=== PATIENT | female | born 1995 | race Caucasian/White ===

== ENCOUNTER 2017-04-14 21:35 | Emergency (ER) | payer MEDICAID ==
[2017-04-14 21:42] VITALS: BP 119/65
--- NOTE | 2017-04-14 21:59 | EDM.PDOC ---
ED HPI GENERAL MEDICAL PROBLEM - General Chief Complaint: Skin Complaint Stated Complaint: RASH, [id number] Time Seen by Provider: 04/14/17 21:53 Source of Information: Reports: Patient - History of Present Illness INITIAL COMMENTS - FREE TEXT/NARRATIVE: patient comes emergency Department today with complaints of a lesion on her left wrist on the volar aspect The patient recently purchased an apple watch and after wearing it for approximately 1 week she noticed that in the area where the metal clasp was she developed a red rash E-type lesion. She is not wearing the watch for the the past few days and the rash has not gotten worse but has not gotten any better. She has only tried hydrocortisone 1 time on the rash. She denies any other rash or lesions on any of her other extremities. She denies any fever or chills shortness of breath or difficulty breathing. No sore throat. No recent exposure to any camping or the wounds. - Related Data Allergies Allergy/AdvReac Type Severity Reaction Status Date / Time No Known Allergies Allergy Verified 04/14/17 21:40 Home Meds: Home Meds . [No Known Home Meds] 07/28/14 [History] Past Medical History - Past Health History Medical/Surgical History: Denies Medical/Surgical History HEENT History: Reports: None Cardiovascular History: Reports: None Respiratory History: Reports: None Gastrointestinal History: Reports: None Genitourinary History: Reports: None CELLAR HAND History: Reports: None Musculoskeletal History: Reports: None Neurological History: Reports: None Psychiatric History: Reports: None Endocrine/Metabolic History: Reports: None Hematologic History: Reports: None Immunologic History: Reports: None Oncologic (Cancer) History: Reports: None Dermatologic History: Reports: None - Infectious Disease History Other Infectious Disease History: pt unsure - Past Surgical History HEENT Surgical History: Reports: None Cardiovascular Surgical History: Reports: None Respiratory Surgical History: Reports: None GI Surgical History: Reports: None Female Surgical History: Reports: None Endocrine Surgical History: Reports: None Neurological Surgical History: Reports: None Musculoskeletal Surgical History: Reports: None Oncologic Surgical History: Reports: None Social & Family History - Family History Family Medical History: Noncontributory - Tobacco Use Smoking Status *Q: Current Every Day Smoker Years of Tobacco use: 3 Packs/Tins Daily: 0.3 Used Tobacco, but Quit: No Month Tobacco Last Used: March Second Hand Smoke Exposure: No - Caffeine Use Caffeine Use: Reports: Soda - Alcohol Use Days Per Week of Alcohol Use: 0 - Recreational Drug Use Recreational Drug Use: No ED ROS GENERAL - Review of Systems Review Of Systems: ROS reveals no pertinent complaints other than HPI. ED EXAM, SKIN/RASH Exam: See Below Exam Limited By: No Limitations General Appearance: Alert, WD/WN, No Apparent Distress Head: Other (no rash). No: Facial Swelling Neck: Other (no rash) Respiratory/Chest: No Respiratory Distress, Other (no rash) Cardiovascular: Normal Peripheral Pulses, Regular Rate, Rhythm Back Exam: Other (no rash) Extremities: Other (on the left volar aspect of the wrist on the most distal region there is an approximate 1.5 cm wide lesion by 1 cm long. It is mildly scaly in nature and pink. Not erythematous. There is a small area of scab in the middle of it. There is no induration. No swelling warmth or streaking.) Course - Vital Signs Last Recorded V/S: Last Vital Signs Temp 36.4 C 04/14/17 21:41 Pulse 86 04/14/17 21:41 Resp 16 04/14/17 21:41 BP 119/65 04/14/17 21:41 Pulse Ox 100 04/14/17 21:41 Departure - Departure Time of Disposition: 21:54 Disposition: Home, Self-Care 01 Clinical Impression: Contact dermatitis Qualifiers: Contact dermatitis type: unspecified Contact dermatitis trigger: unspecified trigger Qualified Code(s): L25.9 - Unspecified contact dermatitis, unspecified cause - Discharge Information Instructions: Contact Dermatitis, [id number] Additional Instructions: Do not wear the Apple watch until you can get a different band for the watch, try to find one that is primarily rubber or synthetic without nickel on the clasp. Topical OTC hydrocortisone cream 4 times a day until 3 days after resolution of the lesion. Return to the ED if new or worsening symptoms. Follow up with primary care if not improving. - Assessment/Plan Assessment:: Contact dermatitis most likely from watch band. Plan: Do not wear the Apple watch until you can get a different band for the watch, try to find one that is primarily rubber or synthetic without nickel on the clasp. Topical OTC hydrocortisone cream 4 times a day until 3 days after resolution of the lesion. Return to the ED if new or worsening symptoms. Follow up with primary care if not improving.
== END 2017-04-14 21:58 | disposition home or self-care (01) ==
LOC: DL.ED 21:35
DX: L25.9 Unspecified contact dermatitis, unspecified cause (principal); F17.210 Nicotine dependence, cigarettes, uncomplicated
CPT/HCPCS: 99282

== ENCOUNTER 2019-11-04 21:00 | Emergency (ER) | payer MEDICAID ==
[2019-11-04] MEDS ORDERED: Tetracaine HCl/PF 0.5% 4 ML Bottle EYELF ONE (21:12)
[2019-11-04] MEDS ORDERED: Fluorescein 1 MG Ophth Strip EYELF ONE (21:12)
[2019-11-04 21:13] VITALS: BP 124/86; PULSE 95
--- NOTE | 2019-11-04 21:22 | EDM.PDOC ---
ED HPI GENERAL MEDICAL PROBLEM - General Chief Complaint: Eye Problems Stated Complaint: RED EYES Time Seen by Provider: 11/04/19 21:05 Source of Information: Reports: Patient History Limitations: Reports: No Limitations - History of Present Illness INITIAL COMMENTS - FREE TEXT/NARRATIVE: c/o pain scratchy sensation left eye since last evening, Doesn't think anything in ey. No hx of injury. - Related Data Allergies Allergy/AdvReac Type Severity Reaction Status Date / Time No Known Allergies Allergy Verified 11/04/19 21:13 Home Meds: Home Meds . 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 Musculoskeletal History: Reports: None Neurological History: Reports: None Psychiatric History: Reports: None Endocrine/Metabolic History: Reports: None Hematologic History: Reports: None Immunologic History: Reports: None Oncologic (Cancer) History: Reports: None Dermatologic History: Reports: None - Infectious Disease History Other Infectious Disease History: pt unsure - Past Surgical History HEENT Surgical History: Reports: None Cardiovascular Surgical History: Reports: None Respiratory Surgical History: Reports: None GI Surgical History: Reports: None Female Surgical History: Reports: None Endocrine Surgical History: Reports: None Neurological Surgical History: Reports: None Musculoskeletal Surgical History: Reports: None Oncologic Surgical History: Reports: None Social & Family History - Family History Family Medical History: Noncontributory - Caffeine Use Caffeine Use: Reports: Soda ED ROS GENERAL - Review of Systems Review Of Systems: Comprehensive ROS is negative, except as noted in HPI. ED EXAM GENERAL W FULL EYE - Physical Exam Exam: See Below Exam Limited By: No Limitations General Appearance: Alert, No Apparent Distress Eye Exam: Bilateral Eye: EOMI, Normal Inspection, PERRL Eyelids: Bilateral: Normal Appearance Conjunctiva & Sclera: Bilateral: Normal Appearance Cornea Exam: Left: Examined with Flourescein, Bilateral: Normal Appearance Extraocular Movements: Bilateral: Intact Pupils: Normal Accommodation Pupillary Reaction: Bilateral: Brisk Throat/Mouth: Normal Oropharynx Neck: Full Range of Motion Respiratory/Chest: No Respiratory Distress Cardiovascular: Regular Rate, Rhythm Neurological: Alert, Oriented Skin Exam: Warm, Dry, Intact Departure - Departure Time of Disposition: 21:22 Disposition: Home, Self-Care 01 Condition: Good Clinical Impression: Conjunctivitis Qualifiers: Conjunctivitis type: acute Acute conjunctivitis type: atopic Laterality: left Qualified Code(s): H10.12 - Acute atopic conjunctivitis, left eye - Discharge Information *PRESCRIPTION DRUG MONITORING PROGRAM REVIEWED*: No *COPY OF PRESCRIPTION DRUG MONITORING REPORT IN PATIENT ROVERTO: No Instructions: Allergic Conjunctivitis, Adult, [id number] Additional Instructions: moisturizing eye drops per package label as needed avoid any eye makeup for one week follow up if symptoms worsen, blurred vision , severe redness or purulent drainage
== END 2019-11-04 21:30 | disposition home or self-care (01) ==
LOC: DL.ED 21:00
DX: H10.12 Acute atopic conjunctivitis, left eye (principal)
CPT/HCPCS: 99283

== ENCOUNTER 2020-12-03 22:38 | Inpatient (IN) | payer MEDICAID ==
[2020-12-03] MEDS ORDERED: Lactated Ringers 1,000 ML IV SCH (23:45)
[2020-12-03] MEDS ORDERED: Lidocaine 1% 30 ML SDV INJECT PRN (23:54)
[2020-12-03] MEDS ORDERED: Methylergonovine 0.2 MG/1 ML Amp IM PRN (23:54)
[2020-12-03] MEDS ORDERED: Lactated Ringers 1,000 ML IV ONE (23:54)
[2020-12-03] MEDS ORDERED: Misoprostol 400 MCG (4 X 100 MCG TAB) RECTAL PRN (23:54)
[2020-12-03] MEDS ORDERED: Sodium Chloride 0.9% 10 ML Syringe FLUSH PRN (23:54)
[2020-12-03] MEDS ORDERED: Tranexamic Acid 1,000 MG in Sodium Chloride 0.9% 100 ML IV PRN (23:54)
[2020-12-03] MEDS ORDERED: Carboprost Tromethamine 250 MCG/1 ML Amp IM PRN (23:54)
[2020-12-03] MEDS ORDERED: Acetaminophen 325 MG Tab PO PRN ×2 (23:54)
[2020-12-03] MEDS ORDERED: Ondansetron 4 MG/2 ML SDV IVPUSH PRN (23:54)
[2020-12-03] MEDS ORDERED: Nalbuphine 10 MG/1 ML Vial IM PRN (23:58)
[2020-12-04] MEDS: Oxytocin/Normal Saline 30 UNIT/500 ML BAG IV SCH ×2 (01:00→10:42)
--- NOTE | 2020-12-04 08:17 | OBOUT ---
DATE: 12/03/2020 TIME: 2300 to 2320. REASON FOR NST: 1. Intrauterine at 40 weeks, confirmed with 19-2/7 week ultrasound. 2. Rupture of membranes at approximately 1930 hours on 12/03 2020. 3. GBS negative. 4. History of gestational hypertension on aspirin until 11/27/2020. 5. COVID test positive. 6. 3, para 1-1-0-2. NST INTERPRETATIONS: During this time period, heart tone baseline is approximately 140 with at least two 15 x 15 beats per minute accelerations, making this strip reactive as well as noted to be reassuring. Tocometer reveals potential 3 to 4 contractions. Blood pressure 115/78, heart rate 103, and temperature 97.6. ASSESSMENT AND PLAN: 1. Nonstress test, reactive and reassuring. 2. Tocometer with contractions. PLAN: Due to no significant cervical change. Actually, it being less than a centimeter per nurse, Pitocin was started and COVID precautions taken. We will continue to follow clinically and closely at this point in time. Please see H and P done through [employer] with updates sticker attached and updated as above. Essentially, the patient had rupture of membranes at approximately 1930 hours on 12/03 2020, occasional contractions, but no labor, and Pitocin will be started. [facility] /[id number]
--- NOTE | 2020-12-04 08:43 | PN ---
DATE: 12/04/2020 SUBJECTIVE: The patient continues on Pitocin. Feels the contractions in the lower abdomen, increasing in frequency and intensity. Difficulty detecting heart tones at times, and difficulty detecting strength of contractions with slow cervical change noted per nurse. The patient tested COVID test positive last night. OBJECTIVE: Last night's white cell count 11.5, hemoglobin 13.3, and platelets 184. Urinalysis with 20 to 30 white cells per high-powered field with BV/clue cells on micro. AmniSure was positive, and COVID test positive as well. heart tones difficult to discern. Appeared to have some decelerations down in the 100s at times. Nurse requesting scalp electrode, tocometer poor reading, contractions every 3 to 4 minutes at times. Vaginal exam reveals it to be 3 cm, 60% effaced, -1 to -2 station, vertex suspected, and IUPC placed after discussion patient as well as scalp electrode. ASSESSMENT: 1. Interim now at 40-1/7 weeks, confirmed with 19-2/7 week ultrasound. 2. Pre labor rupture of membranes at 1930 hours on 12/03/2020, now on Pitocin augmentation at 14 milliunits per minute. 3. Group B Streptococcus negative. 4. History of gestational hypertension, on aspirin until last week on 11/27/2020. 5. COVID test positive. 6. 3, para 1-1-0-2. PLAN: IUPC and FSE placed for further monitoring. We will continue to follow clinically and closely. Continue Pitocin augmentation. The patient understands and agrees with the above treatment plan. [facility] /[id number]
[2020-12-04] MEDS ORDERED: Simethicone 80 MG Tab.Chew PO PRN (09:37)
[2020-12-04] MEDS ORDERED: Benzocaine/Menthol 20%-0.5% Spray 78 GM Cannister TOP PRN (09:37)
[2020-12-04] MEDS ORDERED: Zolpidem 5 MG Tab PO PRN (09:37)
[2020-12-04] MEDS ORDERED: Oxytocin 10 Units/1 ML SDV IM PRN (09:37)
[2020-12-04] MEDS ORDERED: Sodium Chloride 0.9% 10 ML Syringe FLUSH PRN (09:37)
[2020-12-04] MEDS: Ibuprofen 800 MG Tab PO PRN ×2 (12:50→21:15)
--- NOTE | 2020-12-04 17:11 | DEL ---
DATE: 12/04/2020 PREOPERATIVE DIAGNOSES: 1. Intrauterine at 40-1/7 weeks, confirmed by 19-2/7 week ultrasound. 2. Spontaneous rupture of membranes, prelabor at 1930 hours on 12/03/2020. 3. Group B Streptococcus negative. 4. History of gestational hypertension, on aspirin until last week 11/27/2020. 5. coronavirus disease test positive upon admission. 6. G3, P1-1-0-2. POSTOPERATIVE DIAGNOSES: 1. Intrauterine at 40-1/7 weeks, confirmed by 19-2/7 week ultrasound, delivered. 2. Spontaneous rupture of membranes, prelabor at 1930 hours on 12/03/2020. 3. Rapid precipitous spontaneous vaginal delivery. 4. Nuchal cord x1, reduced bluntly with delivery. 5. Secondary perineal laceration, repaired. 6. Group B Streptococcus negative. 7. History of gestational hypertension, on aspirin until last week 11/27/2020. 8. coronavirus disease test positive upon admission. 9. G3, P1-1-0-2. PROCEDURES PERFORMED: On 12/03/2020, underwent NST and Pitocin augmentation; and on 12/04/2020, continued Pitocin augmentation, intrauterine pressure catheter, scalp electrode, and subsequent spontaneous vaginal delivery with second-degree perineal laceration, repaired. ANESTHESIA/ANALGESIA: 1% lidocaine, approximately 10 mL total for repair. The patient did receive Nubain in the first stage of labor. ESTIMATED BLOOD LOSS: 300 mL. FINDINGS: Female, score 8 and 9, weight pending. SUMMARY OF EVENTS: The patient is a 25-year-old G3, P1-1-0-2 intrauterine at 40 weeks on date of admission, 40-1/7 weeks on date of delivery, who presented with spontaneous rupture of membranes at home at 1930 hours on 12/03/2020. AmniSure was positive upon admission as well as COVID test positive and COVID precautions were taken. She was subsequently admitted. Pitocin augmentation was started. 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 She was followed closely. Did receive some Nubain. Nurse checked her around that time and found her to be 6 to 7 cm. Within minutes, she was found to be complete and having an urge to push. I was called to the room stat. I donned sterile gloves, and upon my entry into the room nurse was delivering baby. Cord was doubly clamped and cut. Nuchal cord x1 was noted and reduced bluntly at delivery. Approximately 10 mL of cord blood was obtained for labs. Placenta then delivered with gentle cord traction fundal massage within 5 to 10 minutes. Perineum, vagina, and perirectal areas were examined and noted to have a second-degree perineal laceration that was anesthetized with 1% lidocaine without epinephrine, approximately 10 mL, with good local anesthetic result and repaired in usual fashion using 3-0 Vicryl. Mother and infant are currently stable at time of dictation. [facility] /[id number] MTDD
[2020-12-04] MEDS: Docusate Sodium 100 MG Cap PO PRN (21:15)
--- NOTE | 2020-12-05 08:42 | DISCH ---
ADMITTING DIAGNOSES: 1. Intrauterine 40 weeks confirmed with 19 and 2/7 weeks ultrasound. 2. Pre labor rupture of membranes at 1930 hours on 12/03/2020. 3. GBS negative. 4. History of gestational hypertension, on aspirin until 11/27/2020 during the . 5. Coronavirus disease test positive upon admission. 6. G3, P1-1-0-2. DISCHARGE DIAGNOSES: 1. Intrauterine 40 and 1/7 weeks confirmed with 19 and 2/7 weeks ultrasound - delivered. 2. Pre labor rupture of membranes at 1930 hours on 12/03/2020. 3. GBS negative. 4. History of gestational hypertension, on aspirin until 11/27/2020 during the . 5. Coronavirus disease test positive upon admission. 6. G3, P1-1-0-2. 7. Rapid/precipitous spontaneous vaginal delivery. 8. Nuchal cord x1, reduced bluntly at delivery. 9. Second-degree perineal laceration - repaired. PROCEDURES PERFORMED: On 12/03/2020, NST followed by Pitocin augmentation, and on 12/04/2020 continued Pitocin augmentation, IUPC, scalp electrode, and spontaneous vaginal delivery with second-degree perineal laceration - repaired per Dr. Wills. HISTORY OF PRESENT ILLNESS: Please see H and P. SUMMARY OF HOSPITAL COURSE: The patient was admitted on the above date with above diagnosis, underwent the procedures, then went on to rapidly dilate from 6 to 7 cm to complete within minutes per nurse and had a rapid precipitous spontaneous vaginal delivery yielding a female, score 8 and 9, with a weight of 6 pounds 10 ounces (3010 g). Please see delivery note for further details. EBL is around 300 mL. day #1, date of discharge, the patient was tolerating p.o., was ambulating, urinating, passing flatus, requesting discharge. PHYSICAL EXAMINATION: Vital Signs: Last set of vitals; temperature 97.8, heart rate 64, blood pressure 107/45, respiratory rate 18. Lungs: Clear to auscultation bilaterally. Heart: S1, S2. Regular rate and rhythm. Abdomen: Firm uterus. -1 to -2 below umbilicus. No calf pain. No swelling. LABORATORY DATA: Pending is a CBC. CONDITION ON DISCHARGE COMPARED TO CONDITION ON ADMISSION: Improved. DISCHARGE INSTRUCTIONS: Diet as tolerated. Activity: No lifting more than 20 pounds. No sit-ups, straining, pelvic rest for next 6 weeks, with immediate return of fertility discussed with patient. DISCHARGE MEDICATIONS: [id number] ibuprofen for pain, vitamins x6 weeks. FOLLOWUP: 6 weeks . Followup for her baby in 2 days from now. Did discuss the importance of followup and ramifications of not doing so as well as discharge instructions in regard to her baby discussed with the patient. Please see discharge paperwork for further details. [facility] /[id number]
[2020-12-05] MEDS ORDERED: Prenatal Multivitamin with Calcium/Folic Acid/Iron Tab PO SCH (09:00)
[2020-12-05] MEDS: Ibuprofen 800 MG Tab PO PRN (10:01)
[2020-12-05] MEDS: Docusate Sodium 100 MG Cap PO PRN (10:01)
[2020-12-05 10:07] VITALS: BP 98/65; PULSE 74
== END 2020-12-05 12:05 | disposition home or self-care (01) | DRG 805 ==
LOC: DL.OBCHECK 22:38 → DL.OB 23:54 → OBSVTOIN 12-04 09:40
PROVIDERS: ADMIT Family Medicine; ATTEND Family Medicine
PROC: 10E0XZZ Delivery of Products of Conception, External Approach (ICD-10-PCS; principal; 2020-12-04)
PROC: 0KQM0ZZ Repair Perineum Muscle, Open Approach (ICD-10-PCS; 2020-12-04)
PROC: 10H07YZ Insertion of Other Device into Products of Conception, Via Natural or Artificial Opening (ICD-10-PCS; 2020-12-04)
DX: O48.0 Post-term pregnancy (principal); U07.1 COVID-19; Z37.0 Single live birth; O98.52 Other viral diseases complicating childbirth; Z3A.40 40 weeks gestation of pregnancy; O69.81X0 Labor and delivery complicated by cord around neck, without compression, not applicable or unspecified; O62.3 Precipitate labor; O13.4 Gestational [pregnancy-induced] hypertension without significant proteinuria, complicating childbirth; O70.1 Second degree perineal laceration during delivery
CPT/HCPCS: 36415; 59025; 59409; 81001; 84112; 85027; A9270-GY; J2300; J2590; J7120; U0002

== ENCOUNTER 2021-07-14 18:13 | Emergency (ER) | payer MEDICAID ==
[2021-07-14 18:46] VITALS: BP 138/95; PULSE 121
[2021-07-14] MEDS ORDERED: Acetaminophen 500 MG Tab PO ONE (18:46)
[2021-07-14 19:57] LABS: ANION GAP 14.8 mEq/L (7-13); CHLORIDE,CL 103 mmol/L (98-107); SODIUM,NA 139 mmol/L (136-145)
[2021-07-14] MEDS ORDERED: Doxycycline Monohydrate 100 MG Cap PO ONE (21:46)
== END 2021-07-14 22:05 | disposition home or self-care (01) ==
LOC: DL.ED 18:13
DX: O03.9 Complete or unspecified spontaneous abortion without complication (principal)
CPT/HCPCS: 36415; 76817; 80053; 81001; 84702; 85025; 93975; 99284; A9270

== ENCOUNTER 2021-07-15 14:03 | Observation (INO) | payer MEDICAID ==
[2021-07-15] MEDS ORDERED: Methylergonovine 0.2 MG/1 ML Amp IM ONE (14:37)
[2021-07-15] MEDS ORDERED: Sodium Chloride 0.9% 10 ML Syringe FLUSH PRN (16:14)
[2021-07-15] MEDS ORDERED: Misoprostol 100 MCG Tab PO ONE ×3 (16:16→16:44)
[2021-07-15] MEDS ORDERED: Sodium Chloride 0.9% 1,000 ML IV SCH (16:30)
[2021-07-15] MEDS ORDERED: Misoprostol 400 MCG (4 X 100 MCG TAB) PO ONE ×3 (16:53→21:24)
[2021-07-15] MEDS ORDERED: Acetaminophen 500 MG Tab PO PRN (17:38)
[2021-07-15 21:12] VITALS: BP 112/63; PULSE 83
== END 2021-07-15 21:25 | disposition home or self-care (01) ==
LOC: DL.ED 14:03 → DL.MS 15:58
PROVIDERS: ADMIT Family Medicine; ATTEND Family Medicine
DX: N99.820 Postprocedural hemorrhage of a genitourinary system organ or structure following a genitourinary system procedure (principal); Z20.822 Contact with and (suspected) exposure to COVID-19
CPT/HCPCS: 36415; 76816; 84702; 85027; 87635; 96372; 99285; A9270; G0378; J2210; J7030; U0002